=== PATIENT | male | born 1965 | race African-American/Black ===

== ENCOUNTER → 2020-08-03 | Outpatient (CLI) | payer OTHER ==
--- NOTE | 2020-08-03 14:54 | US ---
EXAMINATION TYPE: US groin RT DATE OF EXAM: 08/03/2020 COMPARISON: NONE CLINICAL HISTORY: K46.9 Hernia. Right groin scanned. No evidence of hernia in right groin. IMPRESSION: 1. Ultrasound negative for inguinal hernia.
== END | disposition home or self-care (01) ==
LOC: RADUSWWP 14:23
PROVIDERS: ATTEND Family Medicine
DX: K46.9 Unspecified abdominal hernia without obstruction or gangrene (principal)

== ENCOUNTER 2021-06-13 09:18 | Day surgery (SDC) | payer OTHER ==
[2021-06-09 13:45] VITALS: BMI 26.4
[~2021-06-13 09:18] MED LIST: LIDOCAINE 1% (10MG/ML) FOR IV START INTRADERMA PRN
[2021-06-13 09:58] VITALS: TEMP 97.6
[2021-06-13] MEDS: LACTATED RINGERS 1,000 ML IV SCH ×2 (10:09→10:24)
[2021-06-13] MEDS ORDERED: LIDOCAINE 1% INJ 10MG/ML (20 ML MDV) ONE (10:25)
[2021-06-13] MEDS ORDERED: PROPOFOL 10 MG/ML 20 ML VIAL IV ONE (10:25)
--- NOTE | 2021-06-13 10:49 | P.PCN ---
Date of Procedure: 06/13/21 Procedure(s) Performed: BRIEF HISTORY: Patient is a 55-year-old, pleasant, white male scheduled for an upper endoscopy as a part of evaluation of epigastric pain for the last 3-4 months duration. He tried PPIs with no help. Denies any NSAID use. . PROCEDURE PERFORMED: Esophagogastroduodenoscopy with biopsy . PREOPERATIVE DIAGNOSIS: Chronic epigastric pain of 4 months duration. IV sedation per anesthesia. PROCEDURE: After informed consent was obtained, the patient was brought into the endoscopy unit. IV sedation was administered by Anesthesia under continuous monitoring. Initially the Olympus GIF-140 video endoscope was inserted into the mouth. Esophagus intubated without any difficulty. It was gradually advanced into the stomach and duodenum and carefully examined. The bulb and the second part of the duodenum appeared normal. The scope at this time was withdrawn to the stomach, adequately insufflated with air, and upon careful examination, mucosa of the antrum, mild gastritis and biopsies were done from this area. The body, cardia and the fundus appeared normal. The scope was then withdrawn into the esophagus. The GE junction was located at 40 cm from the incisors. 2 superficial erosions at the GE junction consistent with LA grade B reflux esophagitis. Rest of esophagus appeared normal thee patient tolerated the procedure well. IMPRESSION: 1. Mild antral gastritis. 2. 2 superficial erosions at the GE junction consistent with LA grade B reflux esophagus. RECOMMENDATIONS: The findings of this examination were discussed with the patient as well as a family. He will be started on Pepcid 20 mg twice daily and was briefly educated about antireflux measures.
[2021-06-13 11:03] VITALS: RESP 16
[2021-06-13 11:32] VITALS: BP 114/79; PULSE 67
== END 2021-06-13 11:37 | disposition home or self-care (01) ==
LOC: ORWHC2ENDO 09:18
PROVIDERS: ATTEND Internal Medicine Gastroenterology
DX: K20.0 Eosinophilic esophagitis (principal); K29.70 Gastritis, unspecified, without bleeding; Z79.82 Long term (current) use of aspirin; Z79.899 Other long term (current) drug therapy; I10 Essential (primary) hypertension; E78.5 Hyperlipidemia, unspecified; F17.210 Nicotine dependence, cigarettes, uncomplicated; Z98.890 Other specified postprocedural states; Z85.47 Personal history of malignant neoplasm of testis; Z91.040 Latex allergy status
CPT/HCPCS: 88305; 43239; J2001; J2704